=== PATIENT | female | born 1985 | race Caucasian/White ===

== ENCOUNTER 2021-07-28 10:15 | Inpatient (IN) | payer OTHER ==
--- NOTE | 2021-07-27 20:52 | P.HPOB ---
History of Present Illness H&P Date: 07/27/21 Chief Complaint: Breech presentation This is a 36 y.o. female, 3, para 2, with an estimated gestational age of 39-1/7 weeks, who presents for primary section due to breech presentation. She has been feeling irregular contractions. course is complicated by maternal tobacco abuse. She has been seen by [facility] and has been getting regular NSTs. She was originally sent to [facility] for concern for possible pericardial effusion, but US there and echocardiogram were normal. OB Hx: . History of 2 vaginal deliveries. Feeder Catcher Hx: No hx STDs. Social Hx: Single. Works full-time for [employer]. Review of Systems Constitutional: Denies chills, Denies fever Eyes: denies blurred vision, denies pain Ears, nose, mouth and throat: Denies headache, Denies sore throat Cardiovascular: Denies chest pain, Denies shortness of breath Respiratory: Denies cough Gastrointestinal: Reports abdominal pain (irregular contractions), Denies diarrhea, Denies nausea, Denies vomiting Genitourinary: Reports Musculoskeletal: Reports low back pain Integumentary: Denies pruritus, Denies rash Neurological: Denies numbness, Denies weakness Past Medical History Past Medical History: GERD/Reflux, Osteoarthritis (OA) Additional Past Medical History / Comment(s): back pain, arthritis History of Any Multi-Drug Resistant Organisms: None Reported Past Surgical History: No Surgical Hx Reported Past Anesthesia/Blood Transfusion Reactions: No Reported Reaction Past Psychological History: Depression Smoking Status: Current every day smoker Past Alcohol Use History: None Reported Past Drug Use History: None Reported - Past Family History Mother Family Medical History: Hypertension Medications and Allergies Home Medications Medication Instructions Recorded Confirmed Type Fluticasone Nasal [place] [Flonase 1 spray EA NOSTRIL DAILY 07/27/21 07/27/21 History Nasal [place]] Omeprazole 20 mg PO 07/27/21 History Pnv,Calcium 72/Iron/Folic Acid 1 each PO 07/27/21 History [ Plus Tablet] Allergies Allergy/AdvReac Type Severity Reaction Status Date / Time cortisone Allergy Rash/Hives Verified 03/03/15 17:29 Exam Osteopathic Statement: *. No significant issues noted on an osteopathic structural exam other than those noted in the History and Physical/Consult. HEENT: within normal limits Heart: regular rate and rhythm Lungs: clear to auscultation bilaterally Abdomen: Cervix: 1 cm/60%/floating Extremities: neg. Nancy's. Assessment and Plan (1) 39 weeks gestation of Status: Acute Code(s): Z3A.39 - 39 WEEKS GESTATION OF SNOMED Code(s): 51312285 (2) Breech presentation Status: Acute Code(s): O32.1XX0 - MATERNAL CARE FOR BREECH PRESENTATION, UNSP SNOMED Code(s): 8603593 Plan: Proceed with primary low transverse section. Will re-check position prior to surgery. I have discussed the risks, benefits, and alternative therapies for the above- mentioned procedure and for both sedation/anesthesia as well as necessary blood products administration, if indicated, as they pertain to this patient. The patient has indicated her understanding and acceptance of the risks and procedures discussed.
[2021-07-28] MEDS ORDERED: CITRIC ACID-SODIUM CITRATE 15 ML CUP PO ONE (10:33)
[2021-07-28] MEDS: LACTATED RINGERS 1,000 ML IV SCH ×6 (11:00→22:07)
[2021-07-28 11:06] LABS: Basophils # (A) 0.1 k/uL (0-0.2); Basophils % (A) 0 %; Eosinophils # (A) 0.4 k/uL (0-0.7); Eosinophils % (A) 3 %; HCT 38.6 % (34.0-46.0); HGB 12.7 gm/dL (11.4-16.0); Lymphocytes # (A) 2.4 k/uL (1.0-4.8); Lymphocytes % (A) 17 %; MCH 30.5 pg (25.0-35.0); MCHC 32.8 g/dL (31.0-37.0); MCV 92.9 fL (80.0-100.0); Mean Platelet Volume 8.2; Monocytes # (A) 0.6 k/uL (0-1.0); Monocytes % (A) 4 %; Neutrophils # (A) 10.8 k/uL (1.3-7.7); Neutrophils % (A) 75 %; Platelet Count 247 k/uL (150-450); RBC 4.15 m/uL (3.80-5.40); WBC 14.5 k/uL (3.8-10.6)
[2021-07-28] MEDS ORDERED: PROPOFOL 10 MG/ML 20 ML VIAL IV ONE (12:02)
[2021-07-28] MEDS ORDERED: fentaNYL (PF) 50 MCG/ML 2 ML AMP ONE (12:02)
[2021-07-28] MEDS ORDERED: OXYTOCIN 30 UNITS/500 ML NS BAG IV ONE (12:02)
[2021-07-28] MEDS ORDERED: MORPHINE SULFATE (PF) 0.3 MG/0.3 ML SYR ONE (12:02)
[2021-07-28] MEDS ORDERED: ePHEDrine 50 MG/ML 1 ML VIAL ONE (12:02)
[2021-07-28] MEDS ORDERED: SUCCINYLCHOLINE CHLORIDE 100 MG/5 ML SYR IV ONE (12:02)
[2021-07-28] MEDS ORDERED: KETOROLAC 15 MG/ML 1 ML VIAL ONE (12:02)
[2021-07-28] MEDS ORDERED: ONDANSETRON 4 MG/2 ML VIAL ONE (12:02)
[2021-07-28 12:20] LABS: Amphetamine Screen,Urine Not Detected (NotDetected); Barbiturate Screen,Urine Not Detected (NotDetected); Benzodiazepines Screen,Urine Not Detected (NotDetected); Cocaine Screen,Urine Not Detected (NotDetected); Methadone Screen, Urine Not Detected (NotDetected); Opiate Screen,Urine Not Detected (NotDetected); Oxycodone Screen, Urine Not Detected (NotDetected); Phencyclidine Screen,Urine Not Detected (NotDetected); Tricyclic Antidepressant,Urine Not Detected (NotDetected); Urn Cannabinoid Scrn Not Detected (NotDetected)
[2021-07-28] MEDS ORDERED: METOCLOPRAMIDE 5 MG/ML 2 ML VIAL IVP PRN (13:00)
[2021-07-28] MEDS ORDERED: diphenhydrAMINE 25 MG CAP PO PRN (13:00)
[2021-07-28] MEDS ORDERED: diphenhydrAMINE 50 MG CAP PO PRN (13:00)
[2021-07-28] MEDS ORDERED: ZOLPIDEM 5 MG TAB PO PRN (13:00)
[2021-07-28] MEDS ORDERED: SIMETHICONE 80 MG CHEWABLE PO PRN (13:00)
[2021-07-28] MEDS ORDERED: NALOXONE 0.4 MG/ML 1 ML VIAL IV PRN (13:00)
[2021-07-28] MEDS ORDERED: HYDROmorphone PCA 10 MG/50 ML BAG IV PRN (13:00)
[2021-07-28] MEDS ORDERED: ONDANSETRON 4 MG/2 ML VIAL IVP PRN (13:00)
[2021-07-28] MEDS ORDERED: OXYTOCIN 30 UNITS/500 ML NS 30 UNIT in SALINE 1 500ML.BAG IV SCH (13:00)
[2021-07-28] MEDS ORDERED: LANOLIN CREAM 5 GM TUBE TOPICAL PRN (13:00)
[2021-07-28] MEDS ORDERED: diphenhydrAMINE 50 MG/ML 1 ML VIAL IVP PRN ×2 (13:00)
--- NOTE | 2021-07-28 13:02 | P.OP ---
Date of Procedure: 07/28/21 Preoperative Diagnosis: 1. Intrauterine at 39 and one sevenths weeks. 2. Breech presentation. 3. Tobacco abuse. 4. Obesity. Postoperative Diagnosis: Same Procedure(s) Performed: Primary low transverse section Anesthesia: GETA, spinal (Duramorph) Surgeon: Trinh Hernandez Door Trimmer #1: Bola Duenas Estimated Blood Loss (ml): 500 Pathology: other (Placenta) Condition: stable Disposition: floor Indications for Procedure: This is a 36-year-old female 3 para 2 at 39 and one sevenths weeks who presents for scheduled primary section secondary to breech presentation. I have discussed the risks, benefits, and alternative therapies for the above- mentioned procedure and for both sedation/anesthesia as well as necessary blood products administration, if indicated, as they pertain to this patient. The patient has indicated her understanding and acceptance of the risks and procedures discussed. Operative Findings: A viable female is noted with scores of 9 at 1 minute and 9 at 5 minutes and weight of 6 lbs. 9 oz. Normal uterus tubes and ovaries are noted. Description of Procedure: The patient is taken to the operating room where she is placed in the dorsal supine position with leftward tilt after spinal Duramorph anesthesia is given. She is prepped and draped in the normal sterile fashion. Skin was tested and found to be inadequately anesthetized. After waiting for the spinal to take effect, the patient was still feeling when we tested her skin. She was then placed under general anesthesia. A Pfannenstiel skin incision was made with a scalpel. A second knife was used to carry the incision down to the underlying layer of fascia. The fascia was nicked in the midline with a scalpel and then extended laterally bilaterally with Kuo scissors. The anterior lip of the fascia was grasped with 2 Bean clamps and then dissected off the underlying rectus muscle in the midline with Kuo scissors. The inferior aspect of the fascial incision was grasped with 2 Bean clamps and dissected off the underlying rectus muscle and the midline with Kuo scissors. Next the peritoneum layer was tented up with 2 hemostats and then entered sharply with the scalpel. The incision is extended superiorly and inferiorly with Metzenbaum scissors. Next a DeLee retractor is placed. The vesicouterine peritoneum is entered sharply with Metzenbaum scissors and extended laterally bilaterally with Metzenbaum scissors and then the bladder flap is pushed inferiorly. The lower uterine segment is incised in transverse fashion with the scalpel and then bluntly entered with a hemostat. Clear fluid is noted. The incision was then extended laterally bilaterally with 2 fingers. The was noted to be in a rubin breech presentation. The buttocks was delivered through the incision followed by each leg in a flexed position, followed by the trunk, followed by each arm in a flexed position and then the head. Nose and mouth are bulb suctioned. Cord is clamped and cut. Infant is taken to warmer by nursing staff. Uterine fundus is gently massaged and placenta is delivered manually. Uterus is exteriorized and cleared of all clots and debris. Uterine incision is closed with 0 Vicryl suture in a running locked fashion. A second layer of 0 Vicryl suture is used in a running fashion for hemostasis. Once adequate hemostasis as assured, the vesicouterine peritoneum is reapproximated with 2-0 Vicryl suture in a running fashion. Posterior cul-de-sac is suctioned of all clots and debris. Uterus is returned to the abdomen. Incision is noted to be hemostatic. Peritoneal layer is closed with 0 Vicryl suture in a running fashion. Muscle layer is reapproximated with 0 Vicryl suture in interrupted fashion. Fascia layer is then closed with 0 PDS suture with 2 sutures meeting in the midline and the knots buried in either side and in the midline. The subcutaneous tissue was then closed with 2-0 Vicryl suture. Skin layer was then closed with adele. All sponge and needle counts are correct. The patient is taken to recovery room in stable condition.
[2021-07-28] MEDS: ACETAMINOPHEN IV (For NPO) 1,000 MG in EMPTY BAG 1 BAG IVPB SCH ×2 (16:49→22:13)
[2021-07-28] MEDS: KETOROLAC 15 MG/ML 1 ML VIAL IVP SCH (18:35)
[2021-07-28] MEDS: ACETAMINOPHEN TAB 500 MG TAB PO SCH ×2 (19:08→23:04)
[2021-07-28] MEDS: IBUPROFEN 600 MG TAB PO SCH (19:09)
[2021-07-28] MEDS: SENNOSIDES-DOCUSATE SODIUM 1 EACH TAB PO SCH (20:10)
[2021-07-29] MEDS: KETOROLAC 15 MG/ML 1 ML VIAL IVP SCH ×2 (01:22→19:32)
[2021-07-29] MEDS: IBUPROFEN 600 MG TAB PO SCH ×4 (01:23→19:33)
[2021-07-29] MEDS: ACETAMINOPHEN TAB 500 MG TAB PO SCH ×4 (04:32→19:38)
[2021-07-29] MEDS: LACTATED RINGERS 1,000 ML IV SCH ×3 (05:48→19:40)
[2021-07-29 07:10] LABS: Basophils # (A) 0.1 k/uL (0-0.2); Basophils % (A) 1 %; Eosinophils # (A) 0.2 k/uL (0-0.7); Eosinophils % (A) 2 %; HCT 32.6 % (34.0-46.0); HGB 10.5 gm/dL (11.4-16.0); Lymphocytes # (A) 2.7 k/uL (1.0-4.8); Lymphocytes % (A) 22 %; MCH 30.4 pg (25.0-35.0); MCHC 32.2 g/dL (31.0-37.0); MCV 94.5 fL (80.0-100.0); Mean Platelet Volume 7.9; Monocytes # (A) 0.6 k/uL (0-1.0); Monocytes % (A) 5 %; Neutrophils # (A) 8.6 k/uL (1.3-7.7); Neutrophils % (A) 70 %; Platelet Count 234 k/uL (150-450); RBC 3.45 m/uL (3.80-5.40); RDW 14.1 % (11.5-15.5); WBC 12.3 k/uL (3.8-10.6)
[2021-07-29] MEDS: SENNOSIDES-DOCUSATE SODIUM 1 EACH TAB PO SCH ×2 (08:33→19:39)
--- NOTE | 2021-07-29 08:40 | P.PN ---
Progress Note - Text Progress Note Date: 07/29/21 Patient doing well. Ambulating w/o paresthesia or weakness. Some pruritis. Denies headache. Pain treated. Back - spinal site c/d A/P POD #1 s/p spinal duramorph - doing well
--- NOTE | 2021-07-29 08:53 | P.PNOBGPC ---
Subjective - Subjective Principal diagnosis: Status post primary section postoperative day #1 Interval history: Patient is doing okay. She has been ambulating. Her lochia has been minimal. She is urinating without difficulty. She states she is passing some flatus but no bowel movement yet. Her pain is well-controlled with Toradol and Tylenol. She is working on breast-feeding. Patient reports: Reports appetite normal, Reports voiding normally, Reports pain well controlled, Reports ambulating normally [place]: doing well, bottle feeding Objective - Vital Signs Latest vital signs: Vital Signs Temp Pulse Resp BP Pulse Ox 07/29/21 07:33 98 F 78 18 93/62 07/29/21 05:47 16 07/29/21 04:00 98.3 F 77 16 91/58 07/29/21 01:17 16 07/29/21 00:00 97.9 F 60 16 93/63 07/28/21 22:00 16 97 07/28/21 20:00 97.6 F 50 L 16 94/46 97 07/28/21 18:42 97 07/28/21 18:00 18 97 07/28/21 16:42 18 98 07/28/21 16:00 98 F 55 L 18 90/55 98 07/28/21 15:01 55 L 20 91/57 07/28/21 14:42 50 L 20 95/50 98 07/28/21 14:31 51 L 20 95/50 98 07/28/21 14:01 97.3 F L 57 L 20 90/54 98 07/28/21 13:46 55 L 20 98/55 98 07/28/21 13:42 55 L 20 98/55 98 07/28/21 13:31 56 L 20 116/66 98 07/28/21 13:16 66 20 115/77 07/28/21 13:01 96.3 F L 80 20 121/80 07/28/21 10:29 96.3 F L 68 16 108/63 Intake and Output 07/28/21 07/29/21 07/29/21 22:59 06:59 14:59 Output Total 800 500 Balance -800 -500 Output: Urine 800 500 Uretheral (Esteban) 400 Other: # Voids 1 1 - Exam Extremities: Present: normal. Absent: tenderness Abdomen: Present: normal appearance, soft (Positive bowel sounds 4). Absent: distention, tenderness Incision: Present: normal, erythematous (There is some ecchymosis noted over the mons area), dry, intact Uterus: Present: normal, firm. Absent: tenderness - Labs Labs: Abnormal Lab Results - Last 24 Hours (Table) 07/28/21 07/29/21 Range/Units 10:54 06:43 WBC 14.5 H 12.3 H (3.8-10.6) k/uL RBC 3.45 L (3.80-5.40) m/uL Hgb 10.5 L (11.4-16.0) gm/dL Hct 32.6 L (34.0-46.0) % Neutrophils # 10.8 H 8.6 H (1.3-7.7) k/uL Assessment and Plan Assessment: Status post primary low transverse section postoperative day #1 (1) 39 weeks gestation of Current Visit: No Status: Acute Code(s): Z3A.39 - 39 WEEKS GESTATION OF SNOMED Code(s): 81786602 (2) Breech presentation Current Visit: No Status: Acute Code(s): O32.1XX0 - MATERNAL CARE FOR BREECH PRESENTATION, UNSP SNOMED Code(s): 8499643 Plan: Continue with postoperative and care today. Will work on breast- feeding. Will advance diet as tolerated.
[2021-07-30] MEDS: KETOROLAC 15 MG/ML 1 ML VIAL IVP SCH ×2 (01:30→06:43)
[2021-07-30] MEDS: IBUPROFEN 600 MG TAB PO SCH ×3 (01:31→10:56)
[2021-07-30] MEDS: ACETAMINOPHEN TAB 500 MG TAB PO SCH ×2 (01:34→07:49)
[2021-07-30] MEDS: LACTATED RINGERS 1,000 ML IV SCH (06:43)
[2021-07-30] MEDS: SENNOSIDES-DOCUSATE SODIUM 1 EACH TAB PO SCH (07:50)
--- NOTE | 2021-07-30 08:30 | P.DS ---
Providers Date of admission: 07/28/21 10:15 Expected date of discharge: 07/30/21 Attending physician: Trinh Hernandez Primary care physician: Stated None - Discharge Diagnosis(es) (1) 39 weeks gestation of Current Visit: No Status: Acute (2) Breech presentation Current Visit: No Status: Acute Hospital Course: This is a 36-year-old female 3 para 2 at 39 and one sevenths weeks who presented for primary section due to breech presentation. She underwent a primary low transverse section and delivered a viable female infant in the rubin breech presentation on 07/28/2021 with scores of 9 at 1 minute and 9 at 5 minutes and weight of 6 lbs. 9 oz. Her postoperative and course has been essentially uncomplicated. Her lochia is minimal. She is passing flatus and bowel movement. Her pain is fairly well controlled with ibuprofen and Tylenol. She is working on breast- feeding but is also bottle feeding. Vital signs are stable. Abdomen is soft with positive bowel sounds 4. Incision is clean dry and intact with adele in place. There is some ecchymosis on her mons area area extremities show negative Homans. Impression is status post primary low transverse section postoperative day #2. Plan is to discharge home today. Routine postoperative and instructions are given. She will be given a prescription for breast pump. She is advised follow-up in the office in 1 week for a postoperative check and in 6 weeks for a check. [place] will be removed and Steri-Strips placed prior to discharge. Procedures: Primary low transverse section on 07/28/2021 Patient Condition at Discharge: Stable Plan - Discharge Summary Discharge Rx Participant: Yes New Discharge Prescriptions: New Ibuprofen [Motrin] 600 mg PO Q6H #60 tab Continue Fluticasone Nasal [place] [Flonase Nasal [place]] 1 spray EA NOSTRIL DAILY Pnv,Calcium 72/Iron/Folic Acid [ Plus Tablet] 1 each PO DAILY No Action Omeprazole 20 mg PO PRN PRN Reason: Allergy Symptoms Discharge Medication List Fluticasone Nasal [place] [Flonase Nasal [place]] 1 spray EA NOSTRIL DAILY 07/27/21 [History] Omeprazole 20 mg PO PRN 07/27/21 [History] Pnv,Calcium 72/Iron/Folic Acid [ Plus Tablet] 1 each PO DAILY 07/27/21 [History] Ibuprofen [Motrin] 600 mg PO Q6H #60 tab 07/30/21 [Rx] Follow up Appointment(s)/Referral(s): Trinh Hernandez DO [Doctor of Osteopathic Medicine] - 09/08/21 3:30 pm (Post Op 08-05-21 @1:30) Activity/Diet/Wound Care/Special Instructions: Instructions 1. Do not begin any exercise program for 3 weeks. 2. Do not resume sexual relations for 3 weeks or longer if uncomfortable. 3. You may take tub baths or showers at any time. 4. You may use tampons if desired after 3 weeks. 5. Keep the area of episiotomy (stitches) clean and dry. 6. If you are not nursing, wear a good fitting, supportive bra during the day and limit fluid intake for at least 1 week to prevent breast engorgement. 7. Call the office, [phone], within the next week to make appointment for your 6 week checkup if it has not already been made. 8. Report any of the following occurrences to the doctor promptly: a. Heavy, excessive bleeding b. Chills, fever c. Burning or frequency of urination d. Pain or redness and breasts if nursing e. Increasing pain or swelling in episiotomy (stitches). In addition to the above instructions, the following additional should be followed: 1. No heavy lifting or straining (exercising) until after 6 week checkup. 2. Keep abdominal incision clean and dry: You may wear a dressing if more comfortable. 3. Make office appointment for 10 days after going home or as instructed by her doctor. Discharge Disposition: HOME SELF-CARE
[2021-07-30 16:56] VITALS: BP 128/70; PULSE 60; RESP 16; TEMP 98
== END 2021-07-30 13:00 | disposition home or self-care (01) | DRG 788 ==
LOC: 4FBP 10:15
PROVIDERS: ADMIT Obstetrics & Gynecology; ATTEND Obstetrics & Gynecology
PROC: 10D00Z1 Extraction of Products of Conception, Low, Open Approach (ICD-10-PCS; principal; 2021-07-28 12:00)
DX: O32.1XX0 Maternal care for breech presentation, not applicable or unspecified (principal); O99.344 Other mental disorders complicating childbirth; O99.214 Obesity complicating childbirth; F17.210 Nicotine dependence, cigarettes, uncomplicated; E66.9 Obesity, unspecified; Z37.0 Single live birth; Z3A.39 39 weeks gestation of pregnancy; O99.334 Smoking (tobacco) complicating childbirth; O99.892 Other specified diseases and conditions complicating childbirth; O99.73 Diseases of the skin and subcutaneous tissue complicating the puerperium; F32.A Depression, unspecified; K21.9 Gastro-esophageal reflux disease without esophagitis; O99.62 Diseases of the digestive system complicating childbirth; M19.90 Unspecified osteoarthritis, unspecified site; L29.9 Pruritus, unspecified; Z88.8 Allergy status to other drugs, medicaments and biological substances
CPT/HCPCS: 80306; 85025; 86850; 86900; 86901

== ENCOUNTER → 2023-06-08 | Outpatient (CLI) | payer OTHER ==
--- NOTE | 2023-06-08 14:02 | MM ---
Reason for Exam: Clinical finding. Indicated Problems: Non-bloody discharge of the right side (White) for 2 Year(s). Patient History: Menarche at age 14. First Full-Term at age 23. Premenopausal. Patient has history of breast feeding. Currently using Hormonal Contraceptives, starting at age 37. Maternal aunt (great) had breast cancer. Risk Values: Sigrid 5 year model risk: 0.3%. NCI Lifetime model risk: 9.2%. Tissue Density: The breasts are heterogeneously dense, which may obscure small masses. Findings: Analyzed By CAD. No distinct abnormality is clinical concern right retroareolar region. Inversion right nipple. No masses seen within either breast. No suspicious consultations present. Managed clinically. Ultrasound recommended on the right. Overall Assessment: Incomplete: need additional imaging evaluation, BI-RAD 0 Management: Diagnostic Breast Ultrasound of the right breast. . Results were given to the patient verbally at the time of exam. Patient should continue monthly self-breast exams. A clinical breast exam by your physician is recommended on an annual basis. This exam should not preclude additional follow-up of suspicious palpable abnormalities. Note on Sigrid scores and lifetime risk: 1. A Sigrid score greater than 3% is considered moderate risk. If this is the case, consider specialist referral to assess eligibility for a risk reducing agent. 2. If overall lifetime risk for the development of breast cancer is 20% or higher, the patient may qualify for future screening with alternating mammogram and breast MRI. Electronically signed and approved by: Robbin Davenport M.D. Radiologis
--- NOTE | 2023-06-08 14:07 | USB ---
Reason for Exam: Clinical finding. Patient History: Menarche at age 14. First Full-Term at age 23. Premenopausal. Patient has history of breast feeding. Currently using Hormonal Contraceptives, starting at age 37. Maternal aunt (great) had breast cancer. Risk Values: Sigrid 5 year model risk: 0.3%. NCI Lifetime model risk: 9.2%. Technique: Method: Targeted. Findings: The lower inner quadrant of the right breast, the axilla of the right breast and the retroareolar of the right breast were scanned. Directly adjacent to the inverted nipple is a slightly hypoechoic collections seen with increased peripheral vascularity measuring 1 cm x 0.76 cm which likely reflects a small abscess. Clinical correlation and surgical consult advised. Overall Assessment: Probably benign, BI-RAD 3 Management: Surgical Consultation of the right breast. A clinical breast exam by your physician is recommended on an annual basis and results should be correlated with mammographic findings. This exam should not preclude additional follow-up of suspicious palpable abnormalities. Results were given to the patient verbally at the time of exam. Electronically signed and approved by: Robbin Davenport M.D. Radiologis
== END | disposition home or self-care (01) ==
LOC: RADMAMWWP 13:13
PROVIDERS: ATTEND Obstetrics & Gynecology
DX: N64.52 Nipple discharge (principal); N64.4 Mastodynia; R92.333 Mammographic heterogeneous density, bilateral breasts; Z80.3 Family history of malignant neoplasm of breast
CPT/HCPCS: 77066; 76642; G0279; 77062